=== PATIENT | male | born 2000 ===

== ENCOUNTER 2019-05-02 00:28 | Emergency (ER) | payer BC ==
[~2019-05-02] VITALS: Ht 175.3 cm; Wt 63.5 kg
[2019-05-02 00:44] VITALS: BP 137/82; Ht 175.3 cm; Wt 63.5 kg
== END 2019-05-02 01:16 | disposition left against medical advice (07) ==
LOC: ED 00:28
DX: Z53.21 Procedure and treatment not carried out due to patient leaving prior to being seen by health care provider (principal)